=== PATIENT | female | born 1940 | race Caucasian/White ===

== ENCOUNTER 2018-12-09 19:14 | Inpatient (IN) ==
[2018-12-09 20:16] LABS: BASO# 0.03 X1000 (0.0-0.2); BASO% 0.5 % (0.0-0.8); EOS% 3.3 % (0.0-10.0); HEMATOCRIT 42.1 % (37.0-47.0); HEMOGLOBIN 13.8 g/dL (12.0-16.0); IMM GRAN# 0.03 X1000 (0.0-0.04); IMM GRAN% 0.5 % (0.0-0.5); LYMPH# 1.97 X1000 (1.2-3.4); LYMPH% 32.7 % (20.5-51.1); MCH 29.1 PG (27-31); MCHC 32.8 g/dL (33-37); MCV 88.8 FL (81-99); MONO# 0.68 X1000 (0.11-0.59); MONO% 11.3 % (1.7-9.3); MPV 10.7 FL (7.4-10.4); NEUT# 3.12 X1000 (1.4-6.5); NEUT% 51.7 % (42.2-75.2); PLT 196 X1000 (130-400); RBC 4.74 XMIL (4.2-5.4); RDW 13.6 % (11.5-14.5); WBC 6.03 X1000 (4.8-10.8)
[2018-12-09 20:26] LABS: INR 0.88; PROTIME 12.4 Seconds (11.0-16.0)
[2018-12-09 20:27] LABS: PTT 24.5 Seconds (22.3-41.8)
[2018-12-09 20:39] LABS: AGAP 13; ALBUMIN 3.9 g/dL (3.5-5.0); ALKALINE PHOSPHATASE 78 U/L (32-104); BUN 12 mg/dL (8-22); CALCIUM 8.1 mg/dL (8.8-10.2); CHLORIDE 104 mmol/L (98-107); COSMO 276; CREATININE 0.8 mg/dL (0.5-0.9); ESTIMATED GFR > 60; GLUCOSE 117 mg/dL (70-104); GOT 16 U/L (10-30); GPT 9 U/L (10-36); POTASSIUM 3.7 mmol/L (3.5-5.1); SODIUM 138 mmol/L (136-145); TCO2 22 mmol/L (25-35); TOTAL PROTEIN 7.9 g/dL (6.3-8.3)
--- NOTE | 2018-12-09 20:43 | Diag Imaging Result Doc PS360 ---
CT HEAD W/O CONTRAST - 12/09/2018 INDICATION: possible CVA COMPARISON: 05/31/2017 FINDINGS: The ventricles and sulci are normal in size and contour. There is mild patchy cerebral white matter lucency compatible with chronic microvascular disease. This is stable from prior. No intracranial mass or hemorrhage. The skull is intact. The sinuses, mastoids, and middle ears are clear. IMPRESSION: No acute process. This exam was performed using automated exposure control, adjustment of mA or kV according to patient size, and/or use of iterative reconstruction technique Electronically signed by Shiv Galicia 12/09/2018 8:41 PM
[2018-12-09 21:49] LABS: URINE SOURCE CLEAN CATCH
[2018-12-09 22:01] LABS: BILIRUBIN URINE NEGATIVE (NEGATIVE); BLOOD URINE 1+ (NEGATIVE); CLARITY CLEAR (CLEAR); COLOR YELLOW; GLUCOSE URINE NEGATIVE (NEGATIVE); KETONE URINE NEGATIVE (NEGATIVE); LEUKOCYTES URINE NEGATIVE (NEGATIVE); NITRITE URINE NEGATIVE (NEGATIVE); PROTEIN URINE NEGATIVE (NEGATIVE); SP GRAVITY URINE 1.015; UROBILINOGEN URINE NORMAL
--- NOTE | 2018-12-09 22:04 | PROVIDER DOCUMENTATION ---
HPI-Neurological Disorder - General Chief Complaint: Stroke-Like Symptoms Stated Complaint: STROKE SX Time Seen by Provider: 12/09/18 19:31 Source: patient Allergies/Adverse Reactions: Patient Allergies Allergy/AdvReac Type Severity Reaction Status Date / Time No Known Allergies Allergy Verified 12/09/18 19:21 Home Medications: Home Medication List Medication Instructions Recorded Confirmed Last Taken Type Levothyroxine Sodium 75 mcg PO QAM 03/20/14 07/30/18 07/29/18 07:30 History Lisinopril [Zestril] 2.5 mg PO DAILY 03/20/14 07/30/18 07/29/18 12:00 History Meloxicam 15 mg PO DAILY 07/24/18 07/30/18 07/29/18 12:00 History Tramadol [Ultram] 50 mg PO Q4H PRN PRN #12 tablet 07/30/18 Unknown Rx Past History - Adult - PAST MEDICAL HISTORY-ADULT Major Childhood Illnesses: reports: denies history Cardiovascular: reports: HTN, hyperlipidemia Respiratory: reports: denies history Gastrointestinal: reports: GERD Obstetrical/Gynecological: reports: denies history Genitourinary: reports: denies history Musculoskeletal: reports: denies history Neurological: reports: TIA Psychiatric: reports: denies history Endocrine/Immune: reports: denies history Other Conditions: reports: denies history - PRIOR SURGERIES/PROCEDURES Surgical/Procedure History: reports: other (cataract removal, left hand skin cell removed) - PRIOR HOSPITALIZATIONS Prior Hospitalizations: reports: for similar symptoms - IMMUNIZATION STATUS Childhood Immunizations: See Nurse Assessment Flu Vaccine: See Nurse Assessment - FAMILY HISTORY Family History: reviewed, not pertinent Progress - PLAN OF CARE/RESULTS Progress/Plan/Lab Results: Vital Signs - 8 hr 12/09/18 19:14 12/09/18 21:20 Temperature 98.2 F Pulse Rate 85 74 Respiratory Rate 20 18 Blood Pressure 162/95 155/104 O2 Sat by Pulse Oximetry 97 98 Laboratory Results - last 24 hr 12/09/18 12/09/18 12/09/18 19:52 19:53 19:53 WBC 6.03 RBC 4.74 Hgb 13.8 Hct 42.1 MCV 88.8 MCH 29.1 MCHC 32.8 L RDW Std Deviation 13.6 Plt Count 196 MPV 10.7 H Immature Gran % (Auto) 0.5 Neut % (Auto) 51.7 Lymph % (Auto) 32.7 [place] % (Auto) 11.3 H Eos % (Auto) 3.3 Baso % (Auto) 0.5 Immature Gran # (Auto) 0.03 Neut # (Auto) 3.12 Lymph # (Auto) 1.97 [place] # (Auto) 0.68 H Eos # (Auto) 0.20 Baso # (Auto) 0.03 PT INR PTT (Actin FS) Sodium 138 Potassium 3.7 Chloride 104 Carbon Dioxide 22 L Anion Gap 13 BUN 12 Creatinine 0.8 Estimated GFR/1.73 m2 > 60 BUN/Creatinine Ratio 15 Glucose 117 H POC Glucose Calculated Osmolality 276 Calcium 8.1 L Total Bilirubin 0.80 AST 16 ALT 9 L Alkaline Phosphatase 78 Troponin T < 0.010 Total Protein 7.9 Albumin 3.9 Globulin 4.0 Albumin/Globulin Ratio 1.0 Urine Source 12/09/18 12/09/18 12/09/18 19:53 20:02 21:41 WBC RBC Hgb Hct MCV MCH MCHC RDW Std Deviation Plt Count MPV Immature Gran % (Auto) Neut % (Auto) Lymph % (Auto) [place] % (Auto) Eos % (Auto) Baso % (Auto) Immature Gran # (Auto) Neut # (Auto) Lymph # (Auto) [place] # (Auto) Eos # (Auto) Baso # (Auto) PT 12.4 INR 0.88 PTT (Actin FS) 24.5 Sodium Potassium Chloride Carbon Dioxide Anion Gap BUN Creatinine Estimated GFR/1.73 m2 BUN/Creatinine Ratio Glucose POC Glucose 107 H Calculated Osmolality Calcium Total Bilirubin AST ALT Alkaline Phosphatase Troponin T Total Protein Albumin Globulin Albumin/Globulin Ratio Urine Source CLEAN CATCH Orders Category Date Time Status CT HEAD W/O CONTRAST [CT] Stat Exams 12/09/18 19:52 Completed CBC WITH ELECTRONIC DIFF [HEME] Stat Lab 12/09/18 19:53 Completed COMPREHENSIVE METABOLIC PANEL [CHEM] Stat Lab 12/09/18 19:53 Completed PROTIME WITH INR [COAG] Stat Lab 12/09/18 19:53 Completed PTT [COAG] Stat Lab 12/09/18 19:53 Completed TROPONIN T Stat Lab 12/09/18 19:52 Completed URINALYSIS DIPSTICK ONLY PL [URINALYSIS] Stat Lab 12/09/18 21:41 Results EKG [EKG] Stat Ther 12/09/18 19:53 Ordered At recheck pt noted that her symptoms had completely resolved. She agrees to be admitted. Result Diagrams: 12/09/18 19:53 12/09/18 19:53 Departure - Departure Referrals and Follow-Ups: None,PCP [Primary Care Provider] -
--- NOTE | 2018-12-09 23:00 | PROVIDER DOCUMENTATION ---
This chart was entered by Alysha Beasley Scribe, acting as scribe for Scottie Dash MD. HPI-Neurological Disorder - General Chief Complaint: Stroke-Like Symptoms Stated Complaint: STROKE SX Time Seen by Provider: 12/09/18 19:31 Source: patient Allergies/Adverse Reactions: Patient Allergies Allergy/AdvReac Type Severity Reaction Status Date / Time No Known Allergies Allergy Verified 12/09/18 19:21 Home Medications: Home Medication List Medication Instructions Recorded Confirmed Last Taken Type Levothyroxine Sodium 75 mcg PO QAM 03/20/14 07/30/18 07/29/18 07:30 History Lisinopril [Zestril] 2.5 mg PO DAILY 03/20/14 07/30/18 07/29/18 12:00 History Meloxicam 15 mg PO DAILY 07/24/18 07/30/18 07/29/18 12:00 History Tramadol [Ultram] 50 mg PO Q4H PRN PRN #12 tablet 07/30/18 Unknown Rx - History of Present Illness-Neuro Nature of Presenting Problem: pt is a 78 yr old female presenting with complaint of left leg numbness, headache, speech difficulty and dizziness. Pt reports she woke this AM not feeling well then this evening at approx 1800 began having headache, dizziness, speech and vision problems and left leg numbness. pt reports hx of TIA and reports this felt the same as before. At time of exam she reports that her symptoms are resolving. Headache Location: reports: global Severity: reports: moderate Onset/Duration: reports: this morning Timing: reports: still present Context: reports: none, impaired speech. denies: head injury, facial droop Character of Altered Mental Status: reports: N/A Any recent trauma/injury?: reports: none Character of Deficits: reports: new weakness (left leg) New weakness or altered sensation location:: reports: LLE Cognitive Baseline: alert, oriented x3 Gait Baseline: walks without assistance Associated Symptoms: reports: headache, dizziness, fatigue, numbness in legs/feet (left leg), slurred speech, vision changes. denies: decreased ability to walk or stand, confusion Similar Symptoms Previously?: Yes (hx of tia) Recently seen or treated by another doctor?: No Review of Systems - Adult - REVIEW OF SYSTEMS - ADULT Constitutional: reports: aranza. denies: fever Eyes: reports: blurred vision. denies: double vision Ears, Nose, Mouth & Throat: denies: ear pain, sinus problem, throat pain Cardiovascular: denies: chest pain, palpitations, syncope Respiratory: denies: cough, shortness of breath, wheezing Gastrointestinal: reports: no symptoms reported Genitourinary: reports: no symptoms reported Musculoskeletal: reports: no symptoms reported Integumentary: reports: no symptoms reported Neurological: reports: dizziness/vertigo, headache/migraines, numbness (left leg), slurred speech. denies: seizure, syncope Psychiatric: reports: no symptoms reported Endocrine: reports: no symptoms reported Hematologic/Lymphatic: reports: no symptoms reported Allergic/Immunologic: reports: no symptoms reported All Other Systems: Reviewed and Negative Past History - Adult - PAST MEDICAL HISTORY-ADULT Review of Records: reports: Old Records Reviewed, Nursing Assessment Review, Medications Reviewed, Social history reviewed & non-contributory. Major Childhood Illnesses: reports: denies history Cardiovascular: reports: HTN, hyperlipidemia Respiratory: reports: denies history Gastrointestinal: reports: GERD Obstetrical/Gynecological: reports: denies history Genitourinary: reports: denies history Musculoskeletal: reports: denies history Neurological: reports: TIA Psychiatric: reports: denies history Endocrine/Immune: reports: denies history Other Conditions: reports: denies history - PRIOR SURGERIES/PROCEDURES Surgical/Procedure History: reports: other (cataract removal, left hand skin cell removed) - PRIOR HOSPITALIZATIONS Prior Hospitalizations: reports: for similar symptoms - IMMUNIZATION STATUS Childhood Immunizations: See Nurse Assessment Flu Vaccine: See Nurse Assessment - FAMILY HISTORY Family History: reviewed, not pertinent - SOCIAL HISTORY Substance Use: none/never Alcohol Use Frequency: never Living Situation: family Physical Exam- Neurological - Physical Exam-Neuro Initial Vital Signs Reviewed: Yes General Appearance: appears well, alert, no apparent distress Eye Exam: bilateral eye: normal inspection HENMT: normocephalic/atraumatic, moist mucous membranes, normal ENT inspection Head Injury: no evidence of injury Neck: non-tender, full range of motion, supple, normal inspection Respiratory: chest non-tender, lungs clear, normal breath sounds Cardiovascular: normal peripheral pulses, regular rate, rhythm, no edema Abdominal Exam: normal bowel sounds, non tender, soft Lymphatic: no adenopathy Extremity: normal range of motion, non-tender, normal 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, 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 Exam: normal hearing, normal speech, PERRL Coordination/Gait: normal finger to nose, normal gait Motor/Sensory: no motor deficit, no sensory deficit, no pronator drift Neurologic: grossly normal, other (CN II-XII intact) Integumentary: normal color, normal turgor Psych/Mental Status: normal mood/affect, normal thought content, normal thought process, oriented x 3 Progress - PLAN OF CARE/RESULTS Progress/Plan/Lab Results: Vital Signs - 8 hr 12/09/18 19:14 12/09/18 21:20 Temperature 98.2 F Pulse Rate 85 74 Respiratory Rate 20 18 Blood Pressure 162/95 155/104 O2 Sat by Pulse Oximetry 97 98 Laboratory Results - last 24 hr 12/09/18 12/09/18 12/09/18 19:52 19:53 19:53 WBC 6.03 RBC 4.74 Hgb 13.8 Hct 42.1 MCV 88.8 MCH 29.1 MCHC 32.8 L RDW Std Deviation 13.6 Plt Count 196 MPV 10.7 H Immature Gran % (Auto) 0.5 Neut % (Auto) 51.7 Lymph % (Auto) 32.7 [place] % (Auto) 11.3 H Eos % (Auto) 3.3 Baso % (Auto) 0.5 Immature Gran # (Auto) 0.03 Neut # (Auto) 3.12 Lymph # (Auto) 1.97 [place] # (Auto) 0.68 H Eos # (Auto) 0.20 Baso # (Auto) 0.03 PT INR PTT (Actin FS) Sodium 138 Potassium 3.7 Chloride 104 Carbon Dioxide 22 L Anion Gap 13 BUN 12 Creatinine 0.8 Estimated GFR/1.73 m2 > 60 BUN/Creatinine Ratio 15 Glucose 117 H POC Glucose Calculated Osmolality 276 Calcium 8.1 L Total Bilirubin 0.80 AST 16 ALT 9 L Alkaline Phosphatase 78 Troponin T < 0.010 Total Protein 7.9 Albumin 3.9 Globulin 4.0 Albumin/Globulin Ratio 1.0 Urine Source Urine Color Urine Clarity Urine pH Ur Specific [place] Urine Protein Urine Ketones Urine Blood Urine Nitrite Urine Bilirubin Urine Urobilinogen Urine WBC Urine Glucose 12/09/18 12/09/18 12/09/18 19:53 20:02 21:41 WBC RBC Hgb Hct MCV MCH MCHC RDW Std Deviation Plt Count MPV Immature Gran % (Auto) Neut % (Auto) Lymph % (Auto) [place] % (Auto) Eos % (Auto) Baso % (Auto) Immature Gran # (Auto) Neut # (Auto) Lymph # (Auto) [place] # (Auto) Eos # (Auto) Baso # (Auto) PT 12.4 INR 0.88 PTT (Actin FS) 24.5 Sodium Potassium Chloride Carbon Dioxide Anion Gap BUN Creatinine Estimated GFR/1.73 m2 BUN/Creatinine Ratio Glucose POC Glucose 107 H Calculated Osmolality Calcium Total Bilirubin AST ALT Alkaline Phosphatase Troponin T Total Protein Albumin Globulin Albumin/Globulin Ratio Urine Source CLEAN CATCH Urine Color YELLOW Urine Clarity CLEAR Urine pH 8.0 Ur Specific [place] 1.015 Urine Protein NEGATIVE Urine Ketones NEGATIVE Urine Blood 1+ A Urine Nitrite NEGATIVE Urine Bilirubin NEGATIVE Urine Urobilinogen NORMAL Urine WBC NEGATIVE Urine Glucose NEGATIVE Orders Category Date Time Status CT HEAD W/O CONTRAST [CT] Stat Exams 12/09/18 19:52 Completed CBC WITH ELECTRONIC DIFF [HEME] Stat Lab 12/09/18 19:53 Completed COMPREHENSIVE METABOLIC PANEL [CHEM] Stat Lab 12/09/18 19:53 Completed PROTIME WITH INR [COAG] Stat Lab 12/09/18 19:53 Completed PTT [COAG] Stat Lab 12/09/18 19:53 Completed TROPONIN T Stat Lab 12/09/18 19:52 Completed URINALYSIS DIPSTICK ONLY PL [URINALYSIS] Stat Lab 12/09/18 21:41 Completed EKG [EKG] Stat Ther 12/09/18 19:53 Ordered At recheck pt noted that all of her symptoms had resolved completely.Pt agrees with plan of care. Result Diagrams: 12/09/18 19:53 12/09/18 19:53 - REASSESSMENT Reassessment #1 Time Reassessed: 21:45 Status: improving Reassessment Comment: pt reports she now feels normal, all symptoms resolved - EKG 1 Time of EKG reading by physician:: 20:25 EKG Read and Signed by:: Scottie Dash EKG Interpretation (*Must complete 3 of following elements*): Abnormal Rate: 74 Rhythm: nsr Mcdonald: left QRS: LVH (minimal voltage criteria) SD Interval: normal ST Wave: normal - CT/MRI 1 CT Study: Head Impression: Normal, See EMR Report - CONSULTS/PCP/HOSPITALIST Notification #1 *Consult/PCP/Hospitalist*: Dr Garcia Time Discussed: 22:00 Consult Disposition: Admit Departure - Departure Date of Disposition Decision: 12/09/18 Time of Disposition Decision: 22:59 DIAGNOSIS: TIA (transient ischemic attack) Disposition: ADMITTED INPATIENT 09 Certified Medical Emergency: Emergent Condition: Good Referrals and Follow-Ups: None,PCP [Primary Care Provider] - - Critical Care Note This patient required my direct & personal management of CC.: No Attestation - Physician/ CALI Attestation Patient care was provided by Advanced Practice Provider:: No The physician spent face to face time with patient:: Yes Advanced Practice Provider documentation review:: Supervising physician onsite and consulted in the evaluation and care of this patient. The physician did have a face to face encounter with the patient. - NIH Stroke Scale NIH Type: Initial Evaluation Level of Consciousness: 0-Alert LOC Questions (ask month and age): 0-Answers Both Correctly LOC Commands (ask to open & close eyes;make a fist, let go): 0-Obeys Both Correctly Best Gaze (horizontal eye movement): 0-Normal Visual (use finger movement, counting or visual threat): 0-No Visual Loss Facial Palsy (show teeth or raise eyebrows & close eyes tght: 0-Symmetrical Movement Motor Function-left arm: 0-Normal Motor Function-right arm: 0-Normal Motor Function-left le-Normal Motor Function-right le-Normal Limb Ataxia(ofleaw-kfow-stkrlk, or heel to [place]): 0-No Ataxia Sensory(pin prick to face,arms,trunk,legs-compare side/side): 0-No Ataxia Best Language(name item/read sentence.Ex-Down to Earth): 0-No Aphasia Dysarthria(Pt read words or say words Ex.Mama,Tip-Top,Thanks: 0-Normal Articulation Extinction and Inattention: 0-Normal Modified Hamblen Score Criteria: 0-no symptoms This chart was documented by the indicated scribe, (Alysha Beasley Scribe) and accurately reflects the services I performed and decisions made by me, Scottie Dash MD, as attested by the provider's signature.
[2018-12-10 07:37] LABS: HEMATOCRIT 40.5 % (37.0-47.0); HEMOGLOBIN 13.3 g/dL (12.0-16.0); MCHC 32.8 g/dL (33-37); MCV 88.4 FL (81-99); RBC 4.58 XMIL (4.2-5.4); RDW 13.4 % (11.5-14.5); WBC 5.49 X1000 (4.8-10.8)
[2018-12-10 08:16] LABS: AGAP 10; ALBUMIN 3.7 g/dL (3.5-5.0); ALKALINE PHOSPHATASE 78 U/L (32-104); BUN 16 mg/dL (8-22); CALCIUM 8.7 mg/dL (8.8-10.2); CHLORIDE 111 mmol/L (98-107); CHOLESTEROL 225 mg/dL (0-200); COSMO 286; CREATININE 0.7 mg/dL (0.5-0.9); ESTIMATED GFR > 60; GLUCOSE 98 mg/dL (70-104); GOT 14 U/L (10-30); GPT 11 U/L (10-36); HDL 40 mg/dL (45-65); LDL 147 mg/dL; POTASSIUM 4.1 mmol/L (3.5-5.1); SODIUM 143 mmol/L (136-145); TCO2 22 mmol/L (25-35); TOTAL PROTEIN 6.1 g/dL (6.3-8.3); TRIGLYCERIDES 191 mg/dL (35-135); VLDL 38 mg/dL
--- NOTE | 2018-12-10 08:41 | EKG Report ---
Test Performed on : 12/09/2018 8:25:11 PM Test Reason : possible CVa Blood Pressure : / mmHG Vent. Rate : 074 BPM Atrial Rate : 074 BPM P-R Int : 162 ms QRS Dur : 072 ms QT Int : 388 ms P-R-T Axes : 021 -48 042 degrees QTc Int : 430 ms Normal sinus rhythm. Left axis deviation Minimal voltage criteria for LVH, may be normal variant Abnormal ECG When compared with ECG of 24-JUL-2018 14:52, No significant change was found Unconfirmed Result
[2018-12-10] MEDS ORDERED: ASPIRIN PO SCH (09:00)
[2018-12-10] MEDS ORDERED: SYNTHROID PO SCH (09:00)
[2018-12-10] MEDS ORDERED: PRINIVIL PO SCH (09:00)
--- NOTE | 2018-12-10 09:16 | Extremity Venous Study ---
EXAM: Carotid Ultrasound HISTORY: tia TECHNIQUE: Carotid Doppler ultrasound COMPARISON: None. FINDINGS: Right: There is normal flow in the common carotid artery. No occlusion or stenosis. Tiny amount of soft plaque near the bulb. Stenosis is less than 30%. The peak systolic velocity in the internal carotid artery is 94 cm/s. The ICA/CCA ratio is 1.11. There is antegrade flow in the vertebral artery. Left: Normal common carotid artery. No occlusion or stenosis. No plaque. The peak systolic velocity in the internal carotid artery 71 cm/s. The ICA/CCA ratio 0.64. There is antegrade flow in the vertebral artery. IMPRESSION: No occlusion or stenosis within either common carotid artery or in the left internal carotid artery. Minimal stenosis in the proximal right internal carotid artery of less than 30%. Electronically signed by Serge Cunha 12/10/2018 9:13 AM
[2018-12-10 16:15] VITALS: BP 123/99
--- NOTE | 2018-12-10 17:20 | HISTORY AND PHYSICAL ---
CHIEF COMPLAINT: Left leg numbness, headache, speech difficulty, and dizziness. HISTORY OF PRESENT ILLNESS: This is a 78-year-old female with a history of multiple prior TIAs, who presents to the emergency room after awakening with left leg numbness, headache, speech difficulty, and dizziness. She presents to the emergency room after having a sudden onset of left leg numbness, headache, speech difficulty and dizziness. She states that she had felt bad since waking, although symptoms did come on at once. She says this is consistent with one of her prior TIAs. CT of the head revealed no acute processes. Carotid Doppler revealed no occlusion or stenosis within either common carotid artery or the left internal carotid artery with the right internal carotid artery less than 30%. According to the patient, symptoms resolved prior to being admitted to the floor and have not recurred. Of note, the patient was on Plavix in the past. She stated that after seeing commercials and reading about it, she got worried about bleeding and she stopped it on her own, but she is not forthcoming exactly when she did stop the medication. She states she did not notify her MDs that she discontinued Plavix. PAST MEDICAL HISTORY: 1. Prior TIAs. 2. Hypertension. 3. Dyslipidemia. 4. Hypothyroid 5. Gastric esophageal reflux disease with a hiatal hernia. 6. Insomnia. 7. 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 PAST SURGICAL HISTORY: 1. Appendectomy 2. Left side cataract surgery. 3. Detached retinal surgery. 4. Squamous cell carcinoma removal from left hand. SOCIAL HISTORY: She does not smoke or drink or use illicit drugs. ALLERGIES: Aspirin and sulfa which cause unknown reaction. HOME MEDICATIONS: A list will be obtained by the nursing staff and restarted as is appropriate. REVIEW OF SYSTEMS: Discussed with the patient with pertinent positives stated in the HPI. She denied any syncope, any chest pain, palpitations, shortness of breath, cough, fever, chills, night sweats, PND, orthopnea, any nausea, vomiting, diarrhea, constipation, black or bloody vomitus or stools, any hematuria, dysuria, frequency, urgency. PHYSICAL EXAMINATION: GENERAL: This is a 78-year-old female who is sitting up in the bed in no distress. VITAL SIGNS: Blood pressure is 149/71 with a heart rate of 50, respirations 18, temperature 97.4 degrees oral with room air saturations 96 to 98 percent. EYES: Pupils are equal, round, react to light. EOMs are intact. Sclerae are anicteric. HEENT: Head is normocephalic, atraumatic. Mucous membranes are moist. NECK: Supple with trachea midline. CARDIOVASCULAR: Regular rate and rhythm. S1 and S2 appreciated. No murmurs. She has no lower extremity edema with peripheral pulses palpable x4 extremities. PULMONARY: Breath sounds are clear with no increased work of breathing noted. GASTROINTESTINAL: Abdomen is soft, nontender, nondistended with bowel sounds in all 4 quadrants. NEUROLOGIC: She is alert oriented x3. SKIN: Warm and dry. LABORATORY DATA: WBC is 6 with hemoglobin 13.8, hematocrit 42.1, platelets of 196,000. Sodium 138, potassium 3.7, BUN 12, creatinine 0.8 with a glucose of 117. Troponin is negative. Urinalysis is essentially negative. CT of the head revealed no acute processes. Ventricles and sulci are normal in size and contour. There is mild patchy cerebral white matter lucency compatible with chronic microvascular disease. This is stable from prior. No intracranial mass or hemorrhage. Skull is intact. Sinuses, mastoids and middle ears are clear. Carotid Doppler revealed no occlusion or stenosis within either common carotid artery or the left internal carotid artery. The proximal right internal carotid artery has less than 30% stenosis. ASSESSMENT AND PLAN: 1. Transient ischemic attack. The patient will be admitted, placed on telemetry. We will continue with neuro checks. 2. Hypertension. We will identify her medications and continue as appropriate. 3. Hypothyroidism. We will continue her medications. 4. Gastroesophageal reflux disease. Aware. We will did discuss with the patient the importance of taking anti-platelet medications in the setting of recurrent TIAs. She did voice understanding. She did agree to taking Xarelto 2.5 mg p.o. daily. We will check her insurance for affordability. Further treatments pending hospital course. Dictated by VIKTOR Holland for Torin Tijerina MD This chart was documented by, VIKTOR Holland and accurately reflects the services performed, treatment plan and medical decisions as attested by the providers signature Torin Tijerina MD. cc: VIKTOR Holland MD [facility]
--- NOTE | 2018-12-10 22:41 | HISTORY AND PHYSICAL ---
ADDENDUM: Patient seen and examined by myself. Full note dictated and discussed with nurse practitioner. The patient will be admitted to the hospital due to her TIA symptoms. She has been recommended in the past to take aspirin, but she states that caused a rash and took Plavix, but she notes that caused her to be dizzy. States she is intolerant to all statins due to muscle weakness. She is scheduled to start Repatha injections soon. PLAN: We will admit her to the hospital, rule out CVA. We will continue to follow. Further orders as needed. cc: Torin Tijerina MD
--- NOTE | 2018-12-11 08:11 | DISCHARGE SUMMARY ---
ADMISSION DATE: 12/09/2018 DISCHARGE DATE: 12/10/2018 DISCHARGE DIAGNOSES: 1. Transient ischemic attack. 2. Hypothyroidism. 3. Hypertension. CONSULTATIONS: None. PROCEDURES: None. BRIEF HOSPITAL COURSE: The patient was admitted to the hospital overnight for observation with TIA-type symptoms. The patient notes that this is the fifth time this has happened. It had been recommended in the past that she take Plavix. However, she tells me that Plavix makes her dizzy, and she has stopped her aspirin as well. Does note that she has high cholesterol, but is intolerant to all statins. She is scheduled to start Repatha soon. Thankfully, all of her symptoms resolved. On discharge, she is awake, alert, she is in no distress, and she is asking to go home. DISPOSITION: Discussed with the patient that if she is unwilling to take aspirin or Plavix, that she should consider a low-dose Xarelto 2.5 mg in an attempt to decrease her risk of having a stroke. Prescription was written. Hopefully, the patient will fill her prescription, and will follow up for her cholesterol medication treatment. She is to follow up outpatient with her primary doctor in 1 week. cc: Torin Tijerina MD
== END 2018-12-10 18:00 | disposition home or self-care (01) | DRG 69 ==
LOC: P.ED 19:14 → SUATTDRO 12-10 00:10 → P.MEDSURG 12-10 00:10
PROVIDERS: ATTEND Family Medicine
CPT/HCPCS: 70450; 80053; 80061; 81003; 82948; 84443; 84484; 85025; 85027; 85610; 85730; 93005; 93880; 99285; A9270; XXXXX